=== PATIENT | female | born 1970 | race Caucasian/White ===

== ENCOUNTER 2017-12-28 06:59 | Day surgery (SDC) | payer BC, SELFPAY ==
[2017-12-28] VITALS (7 sets, daily range): BP systolic 100–123; BP diastolic 59–92; PULSE 50–70; RESP 16–18; TEMP 36.1–36.4; O2SAT 92–100; BMI 33.0
--- NOTE | 2017-12-28 | SEP_PTH ---
PATIENT: BOO MCKEON LOC: [facility] [place] U#:[id number] AGE/SX: 47/F ROOM: RE12/28/[address]: Dr. Mitchel Alcantara MD : 1970 BED: DIS: 12/28/2017 SPEC #: [id number] RECD: 12/28/17 15:15 STATUS: CARSON DSOUZA #: [id number] JENNIE: 12/28/17 00:[address]: Mitchel Alcantara DEPT: SURGICAL PATHOLOGY RECD BY: Wilfrido Jimenez ENTERED: 12/28/17 15:16 SP TYPE: SEPTUM OTHR DR: Out of Town Doctor Tissues: A - Ethmoid sinus, NOS B - Ethmoid sinus, NOS C - Nasal septum, NOS Procedures: Decalcification bone/plaque Surgery Specimen Level III Surgery Specimen Level IV HEADER OPERATION: Septoplasty, endoscopy, sinus/nasal maxillary intranasal PRE-OP DIAGNOSIS: Chronic maxillary sinusitis; chronic ethmoidal sinusitis; deviated nasal septum TISSUE SUBMITTED: A - Nasal contents left, B - Nasal contents right, C - Septum, nasal MICROSCOPIC DIAGNOSIS A. Nasal sinus contents, left, sinus/nasal maxillary and intranasal endoscopy: Fragments of respiratory mucosal tissue with chronic inflammation and bone. B. Nasal sinus contents, right, sinus/nasal maxillary and intranasal endoscopy: Fragments of respiratory mucosal tissue with chronic inflammation and bone. C. Septum, nasal: Fragments of cartilage and bone, clinically deviated nasal septum. ARTIE:jack 01/02/18 MICROSCOPIC DESCRIPTION Slides are reviewed. GROSS DESCRIPTION A - Received in fixative is one container labeled with the patient's name and designated nasal contents left. The specimen consists of multiple irregular fragments of griffiths soft tissue mixed with fragments of bone that in aggregate measure 5 x 3 x 0.3 cm. The entire specimen is submitted in two cassettes after decalcification. B - Received in fixative is one container labeled with the patient's name and designated nasal contents right. The specimen consists of multiple irregular fragments of griffiths soft tissue mixed with fragments of bone that in aggregate measure 5 x 3 x 0.3 cm. The entire specimen is submitted in two cassettes after decalcification. C - Received in fixative is one container labeled with the patient's name and designated septum nasal. The specimen consists of multiple fragments of cartilage and bone that in aggregate measure 4 x 3 x 0.3 cm. [employer] tissue is submitted in one cassette after decalcification. / ARTIE:jack 12/28/17 TC:3 CPT: 76491 x2, 99298 x3, 42236
--- NOTE | 2017-12-28 07:12 | EKG12_ITS ---
Test Reason : PRE-OP Blood Pressure : / mmHG Vent. Rate : 056 BPM Atrial Rate : 056 BPM P-R Int : 148 ms QRS Dur : 088 ms QT Int : 432 ms P-R-T Axes : 011 000 004 degrees QTc Int : 416 ms Sinus bradycardia Otherwise normal ECG Confirmed by PHILIP CULP, KATELYN ([id number]), marketing editor ZEESHAN JOHN ([id number]) on 01/02/2018 2:22:08 PM Referred By: Mitchel Alcantara Confirmed By:KATELYN PALACIOS MD
[2017-12-28 07:22] LABS: Internal QC Validated? YES +Cl - CLEAR BKGD; Pregnancy, Urine Negative Negative
[2017-12-28 07:42] LABS: Hemoglobin 13.9 g/dl (12.0-15.0); Mean Corp Hgb Conc 33.1 g/gl (32-36); Mean Corpuscular Hgb 32.4 pg (27.0-32.0); Mean Corpuscular Volume 97.9 fL (81-99); Platelet Count 187 K/mm3 (150-450); RBC Distribution Width SD 41.9 fl (35.1-43.9); Red Blood Count 4.29 M/mm3 (4.2-5.4); White Blood Count 7.4 K/mm3 (4.4-11.0)
[2017-12-28 07:43] LABS: Scan Indicated on CBC? Y/N NO
[2017-12-28 07:53] LABS: Anion Gap 6 (5-15); BUN 15 mg/dL (7-18); BUN/Creat Ratio 17.5 RATIO (10-20); Calcium,Total 8.4 mg/dL (8.5-10.1); Chloride 106 mmol/L (98-107); Creatinine, Serum 0.86 mg/dL (0.55-1.02); EST Glomerular Filtration Rate 76 mL/min (>60); Est Glom Filt Rate - Afr Amer 92 mL/min (>60); Estimated Creatinine Clearance 83.33 ml/min; Glucose 91 mg/dL (74-106); Potassium 3.8 mmol/L (3.5-5.1); Sodium Level 140 mmol/L (136-145)
[2017-12-28] MEDS: Oxymetazoline 0.05% 1 SPRAY SPRAY.BTL 15 SPRAY (09:01)
[2017-12-28] MEDS: Lidocaine 4% 50 ML Bottle (09:03)
[2017-12-28] MEDS: Bacitracin 500 UNITS/GM PACKET (09:51)
--- NOTE | 2017-12-28 10:07 | OP.PCM_ITS ---
Problem List (1) Deviated nasal septum Status: Chronic (2) Chronic maxillary sinusitis Status: Chronic (3) Chronic ethmoidal sinusitis Status: Chronic Report of Operation Date of Procedure: 12/28/17 Pre-Operative Diagnosis: Deviated nasal septum, chronic maxillary and ethmoid sinusitis Post-Operative Diagnosis: same Surgery/Procedure Performed:: Septoplasty, bilateral endoscopic total ethmoidectomy, maxillary antrosotmies Description of Surgical Findings:: Trish is a 47-year-old female presents evaluation recurrent episodes of sinusitis usually 2-5 episodes a year accompanied by congestion colored discharge from both nostrils with exam showing significant nasal septal deviation and CT scan showing changes consistent with chronic ethmoid maxillary sinus disease given failure of optimal medical therapy the above surgery was offered in hopes of relief and she was eager to proceed. The risks, a lternatives, potential benefits, and complications were discussed at length and any questions answered to the patient and/or caregiver's satisfaction. Witnessed informed consent was obtained in the office, and the patient and/or caregiver was agreeable to proceed. Procedure went as follows: The patient was identified in the preoperative holding and brought to the operating room, was placed under general anesthesia and intubated. When appropriate anesthesia was obtained, the navigational head gear was placed and confirmed to be operational in accordance with the supervisor travel information center's directions. Pledgets soaked in a 50-50 mixture of oxymetazoline and 4% topical lidocaine were placed to decongest the nasal mucosa. These were then removed and the nasal septum was then injected beginning on the left side with 1% lidocaine with 100,000 epinephrine for a total 6 mL There was noted to be significant nasal septal deviation to the right. Using a 15 blade scalpel, a hemitransfixion incision was then made in the left side and using the Irina elevator a subperichondrial/periosteal flap was elevated. The septum was then transected at the bony cartilaginous junction and similar flap raised on the contralateral side. Using a Kayla forceps the septum was then sharply transected superiorly and the deviated portions removed with a Aracely forceps. Any inferior bony spur was then removed with a chisel allowing for midline placement of the nasal septum. The hemitransfixion incision was then closed with interrupted 4-0 chromic gut suture followed by a 4-0 plain quilting suture to reapproximate the mucosal flaps. Beginning on the left side using a 0? endoscope the nasal cavity examined. The insertion of the middle turbinate and uncinate process was then injected with 1% lidocaine with 100,000 epinephrine for a 2 cc total, and a similar injection was then carried on the contralateral side. Upon returning to the left side the middle turbinate was medialized with a Irina elevator. This allowed examination of the maxillary sinus ostia which is then probed with a double ball seeker. The uncinate process process was then outfractured with a J curette and transected with a backbiting forceps. This was then removed with the microdebrider creating a wide maxillary antrostomy. The ethmoid bulla was then entered and total ethmoidectomy was then carried out working posteriorly to anterior. Any polyps, scar, and mucous secretions were removed. Pledgets soaked in oxymetazoline were then placed for hemostasis and attention turned to the contralateral side. Similar procedure and findings were then carried out. Floseal hemostatic agent was then applied. An NG tube was then placed to decompress the stomach and the patient returned to anesthesia, revived and extubated having tolerated the procedure well. Youssef splints coated with Bacitracin ointment were then applied to each nasal cavity and secured at the columella with a single 3-0 Prolene suture. An NG tube was then placed to decompress the stomach and the patient returned to anesthesia, revived and extubated having tolerated the procedure well. Type of Anesthesia:: General Anesthesiologist: Mitchel Collins Special Medications: none Specimen's removed: septal and sinus contents Drains: none Estimated Blood Loss (mL): 100 mL Fluids Replaced: 800 mL Grafts/Implants Used: Youssef splints - Complications none - Admit VTE Documentation VTE Present on Admission: No VTE Mechan Device Prophylaxis: SCD's VTE Pharm Prophylaxis ordered?: No
--- NOTE | 2017-12-28 10:10 | PCM.DC ---
- Discharge Diagnoses Current Active Problems: Current Active and Chronic Problems Deviated nasal septum (Chronic) Chronic maxillary sinusitis (Chronic) Chronic ethmoidal sinusitis (Chronic) You will use the following diet at home:: No restrictions Discharge Activity: Return to Normal Activity, May not drive while taking narcotic pain medications. Weight Bearing Status: Weight bearing as tolerated Call your doctor if your incision/area has: Sudden Increased Bleeding, Foul Smelling Discharge Call your doctor if you observe: Fever of 101 or Higher, Uncontrolled pain Allergies/Adverse Reactions: Allergies No Known Allergies Allergy (Verified 12/19/17 16:07) Medications to take at Discharge Albuterol IH (ProAir) [Proair Hfa (SP)Vent Pts] 1 - 2 puff INHALATION Q4H PRN PRN 12/19/17 Clobetasol Propionate/Emoll [Clobetasol Emollient 0.05% Crm] 30 gm RECTAL PRN PRN 12/19/17 Fluticasone 0.05% [Flonase Nasal [place]] 1 spray NASAL DAILY 12/19/17 Gentamicin/Prednisol AC [Pred-G S.o.p. Eye Ointment] 3.5 gm OP PRN PRN 12/19/17 RX: Melatonin 5 mg PO QHS 12/19/17 Sertraline HCl [Zoloft] 50 mg PO DAILY 12/19/17 Primary Care Physician: Isabel Antoine,Out of [Primary Care Provider] - Test Results: Test results from this visit will be discussed in further detail at your follow-up appointment, if applicable. Please Follow Up With: Mitchel Alcantara MD When: 5 days
[2017-12-28] MEDS: Ibuprofen 400 MG Tablet PO (11:16)
[2017-12-28] MEDS: HYDROcodone Bitartrate/Apap 5/325 Tablet PO (11:16)
== END 2017-12-28 11:45 | disposition home or self-care (01) ==
LOC: SDC 07:03 → AC 07:03
PROVIDERS: Anesthesiology; Referring Provider Otolaryngology; Visit Provider Otolaryngology
PROC: (CPT 30520; principal; 2017-12-28 07:55)
DX: J34.2 Deviated nasal septum (principal); J32.0 Chronic maxillary sinusitis; J32.2 Chronic ethmoidal sinusitis; G43.909 Migraine, unspecified, not intractable, without status migrainosus; J45.909 Unspecified asthma, uncomplicated; G47.30 Sleep apnea, unspecified; F32.9 Major depressive disorder, single episode, unspecified; Z79.899 Other long term (current) drug therapy
CPT/HCPCS: 00160; 30520; 31255; 31256; 36415; 80048; 81025; 85027; 88304; 88305; 88311; 93005; J7120; J2405